=== PATIENT | female | born 1950 | race Caucasian/White ===

== ENCOUNTER 2017-07-22 12:25 | Emergency (ER) | payer OTHER, BC ==
[2017-07-22 12:41] VITALS: BP 128/88; PULSE 95; TEMP 97.5; BMI 21.9
--- NOTE | 2017-07-22 12:47 | PDOC ---
History of Present Illness - General Chief Complaint: Nausea Stated Complaint: NAUSEA, DIARRHEA Time Seen by Provider: 07/22/17 12:27 History Source: Patient Exam Limitations: No Limitations - History of Present Illness Travel History: No Initial Comments: 07/22/17 12:44 67y F presents with complaint of 5 days of nausea without vomiting. Pt denies any associated chest pain, sob, coughing, abdominal pain, dysuria, back pain. Pt does endorse having some diarrhea a few days ago but her BM is now normal. Pt endorses a gradual onset, intermittent mild frontal headache that started approx 2-3 days ago and nonradiating. Pt denies having a history of headaches. She states she is drinking fluids, but isn't eating as much as usual. Pt went to her PMD today who referred her to the ED due to +murphies sign. pt dneies smoking, etoh use, drug use. Past History - Past Medical History Allergies/Adverse Reactions: Allergies Allergy/AdvReac Type Severity Reaction Status Date / Time alendronate sodium Allergy Bone Pain Verified 07/22/17 12:26 [From Fosamax] ibandronate sodium Allergy Bone Pain Verified 07/22/17 12:26 [From Boniva] Penicillins Allergy Verified 07/22/17 12:26 raloxifene HCl [From Evista] Allergy Hives Verified 07/22/17 12:26 risedronate sodium Allergy Bone Pain Verified 07/22/17 12:26 [From Actonel] Home Medications: Ambulatory Orders Cholecalciferol (Vitamin D3) [Vitamin D] 2,000 unit PO DAILY capsule 04/22/15 Lactobacillus Combo No.11 [Probiotic] 1 each PO DAILY 04/22/15 Multivitamin [Multi-Day Vitamins] 1 each PO DAILY tablet 04/22/15 Glucosam/Chond/Collagen/Hyalur [Glucosamine Chondroitin Cap] 1 each PO DAILY 07/08 [place]-3/Dha/Epa/Fish Oil [Fish Oil 1,000 mg Softgel] 1 each PO DAILY 07/22/17 Ondansetron [Zofran -] 4 mg PO TID PRN #14 tablet 07/22/17 COPD: No - Surgical History Appendectomy: Yes - Suicide/Smoking/Psychosocial Hx Smoking History: Never smoked Have you smoked in the past 12 months: No Hx Alcohol Use: No Review of Systems - Review of Systems Able to Perform ROS?: Yes Comments:: 07/22/17 13:17 Constitutional - no reported Fever, Chills, HEENT: no reported vision changes, sore throat Respiratory: no reported cough, sob, hemoptysis Cardiac: no reported chest pain, palpitations, light headedness, leg swelling Abd/GI: + nausea, no reported abd pain,vomiting, blood per rectum, melena, diarrhea : no reported dysuria, frequency, discharge Musculskelatal - no reported back pain, joint swelling skin - no reported bruising, erythema, rash neurological: + headache, no reported numbness, focal weakness, tingling, ataxia, hematologic: no reported anemia, easy bruising, easy bleeding *Physical Exam - Vital Signs Last Vital Signs Temp Pulse Resp BP Pulse Ox 97.5 F L 95 H 18 128/88 96 07/22/17 12:25 07/22/17 12:25 07/22/17 12:25 07/22/17 12:25 07/22/17 12:25 - Physical Exam Comments: 07/22/17 13:18 GENERAL: The patient is awake, alert, and fully oriented, Nontoxic - in no acute distress. HEAD: Normocephalic, atraumatic. EYES: extraocular movements intact, sclera anicteric, conjunctiva clear. ENT: Normal voice, Moist mucous membranes. NECK: Normal range of motion, supple LUNGS: Breath sounds equal, clear to auscultation bilaterally. No wheezes, no rhonchi, no rales. HEART: Regular rate and rhythm, normal S1 and S2 without murmur, rub or gallop. ABDOMEN: Soft, nontender, normoactive bowel sounds. No guarding, no rebound. No CVA tenderness EXTREMITIES: Normal range of motion, no edema. No clubbing or cyanosis. No cords, erythema, or tenderness. NEUROLOGICAL: No facial assymetry, Normal speech, CN2-12 intact, strength 5/5 and symmetric in upper/lower extremities, sensation grossly intact and symmetric in upper/lower extremities, normal gait. PSYCH: Normal mood, normal affect. SKIN: Warm, Dry, normal turgor, Heart Score/ECG Review - ECG Impressions Comment:: 07/22/17 13:59 Twelve-lead EKG was performed and reviewed by me. There is normal sinus rhythm with a normal rate. rate o f77 LAFB abnormal r wave progression ED Treatment Course - LABORATORY CBC & Chemistry Diagram: 07/22/17 14:10 07/22/17 14:10 Medical Decision Making - Medical Decision Making 07/22/17 13:19 67y F presenting with nausea for 5 days associated with mild intermittent frontal headache. abd exam normal for me, but dr. rosen thought she may hve had a +murphies sign. neuro intact. nonspecific nausea ddx - normal neuro exam, and mild headache, ICH/IC mass unlikely consider atypical acs, however nonexertioanl symptoms, no cp, sob - will obtain ekg will obtain UA to screen for renal problems/hyperglycemia pt declines blood work as she states she just had them by dr. rosen in [place]. also declines IV for fluid hydration will give zofran for nausea, tylenl for headache will obtain GB US willr eassess 07/22/17 13:58 pt feeling imroved UA reviewed will ck labs although i doubt this is ACS, will ck a screening trop for highly atypical acs 07/22/17 15:42 labs reviewed ALT/AST slightly elevated trop neg GB US negative pt feeling improved, feels hungry, resolution of her headache no risk factors for Hepatitis - states she rarely eats out will notify dr. rosen 07/22/17 15:[address] rosen agree with management pt feeling improved will dc with pmd fu I discussed the physical exam findings, ancillary test results and final diagnoses with the patient. I answered all of the patient's questions. The patient was satisfied with the care received and felt comfortable with the discharge plan and treatment plan. The patient will call their primary care physician within 24 hours to arrange follow-up and will return to the Emergency Department with any new, persistent or worsening symptoms. 07/22/17 17:02 zofran required prior authorization changed the pts rx ot reglan 10mg at the pharmacy *DC/Admit/Observation/Transfer Diagnosis at time of Disposition: Nausea, Elevated liver enzymes - Discharge Dispostion Disposition: HOME Condition at time of disposition: Improved Admit: No - Prescriptions Prescriptions: Ondansetron [Zofran -] 4 mg PO TID PRN #14 tablet PRN Reason: Nausea - Referrals Referrals: Jet Rosen MD [Primary Care Provider] - - Patient Instructions Printed Discharge Instructions: DI for Nausea -- Adult Additional Instructions: Your blood work revealed just slightly elevated liver enzymes. Please follow up with dr. Rosen to have this rechecked. Please make sure you are staying well hydrated. If you ahve any abdominal pain, chest pain, headache, dizziness, vision changes , numbness/tingling/weaness or any other concerns, return to the emergency department for evaluation. Otherwise follow up with dr. Rosen to have your symptoms reassessed. Print Language: TONGAN - Post Discharge Activity
[2017-07-22] MEDS ORDERED: ONDANSETRON *ODT* 4 MG TABLET SL ONE (13:07)
[2017-07-22 13:08] LABS: PH,URINE 5.5 (4.5-8); URINE APPEARANCE Clear; URINE BILIRUBIN 1+ (NEGATIVE); URINE BLOOD Negative (NEGATIVE); URINE GLUCOSE (UA) Negative (NEGATIVE); URINE KETONE 2+ (NEGATIVE); URINE LEUK ESTERASE Negative (NEGATIVE); URINE NITRITE Negative (NEGATIVE); URINE UROBILINOGEN 0.2 (0.2-1.0)
[2017-07-22 13:13] LABS: URINE COLOR YELLOW; URINE PROTEIN 1+ (NEGATIVE)
[2017-07-22] MEDS ORDERED: ONDANSETRON *ODT* 4 MG TABLET ONE (13:18)
[2017-07-22] MEDS ORDERED: SODIUM CHLORIDE 1,000 ML IV ONE (13:58)
[2017-07-22 15:10] LABS: ALBUMIN 3.3 g/dl (3.5-5.0); ALK PHOS 41 U/L (32-92); ANION GAP 8 (8-16); BILIRUBIN,TOTAL 0.8 mg/dl (0.2-1.0); BLOOD UREA NITROGEN 15 mg/dl (7-18); CALCIUM 8.1 mg/dl (8.4-10.2); CHLORIDE 100 mmol/L (98-107); CO2 25 mmol/L (22-28); CREATININE 0.7 mg/dl (0.6-1.3); GLUCOSE,RANDOM 81 mg/dl (74-106); POTASSIUM 3.8 mmol/L (3.5-5.1); SGOT/AST 76 U/L (10-42); SGPT/ALT 90 U/L (10-40); SODIUM 133 mmol/L (136-145); TOT PROT 5.9 g/dl (6.4-8.3)
[2017-07-22 15:15] LABS: MCH 28.3 pg (25.7-33.7); MCHC 32.5 g/dl (32.0-36.0); MEAN CELL VOLUME 87.1 fl (80-96); MEAN PLT VOLUME 9.2 fl (7.5-11.1); PLATELET COUNT 188 K/MM3 (134-434); WHITE BLOOD COUNT 6.4 K/mm3 (4.0-10.8)
[2017-07-22 17:33] LABS: URINE BACTERIA FEW /hpf (NEGATIVE); URINE WBC 0-2 (0-5)
[2017-07-22 18:08] LABS: PLATELET ESTIMATE ADEQUATE
--- NOTE | 2017-07-26 13:45 | EKG ---
Test Reason : Blood Pressure : / mmHG Vent. Rate : 077 BPM Atrial Rate : 077 BPM P-R Int : 186 ms QRS Dur : 100 ms QT Int : 380 ms P-R-T Axes : 025 -53 012 degrees QTc Int : 430 ms NORMAL SINUS RHYTHM LEFT ANTERIOR FASCICULAR BLOCK ANTEROSEPTAL INFARCT , AGE UNDETERMINED ABNORMAL ECG NO PREVIOUS ECGS AVAILABLE Confirmed by JULY MILES MD ([id number]) on 07/26/2017 1:45:17 PM Referred By: MD JUNIOR Confirmed By:JULY MILES MD
== END 2017-07-22 16:05 | disposition home or self-care (01) ==
LOC: FER 12:25
PROC: 3E0337Z Introduction of Electrolytic and Water Balance Substance into Peripheral Vein, Percutaneous Approach (ICD-10-PCS; principal; 2017-07-22)
DX: R11.0 Nausea (principal); R94.5 Abnormal results of liver function studies
CPT/HCPCS: 36415; 76705-TC; 80053; 81003; 81015; 82550; 84484; 85025; 93005; 99284-25